=== PATIENT | male | born 1985 | race Two or more races ===

== ENCOUNTER 2023-02-12 08:28 | Emergency (ER) | payer SELFPAY ==
[2023-02-12 08:36] VITALS: BP 120/70; PULSE 64; RESP 18; TEMP 36.5; O2SAT 99; BMI 25.1
--- NOTE | 2023-02-12 09:24 | ED_ITS ---
HPI - General Adult General Chief complaint: General Medical Stated complaint: l ear infection piercing Time Seen by Provider: 02/12/23 09:02 Source: patient Mode of arrival: ambulatory Limitations: no limitations History of Present Illness HPI narrative: 37 yo male presents to the ER for evaluation of an infection of the left upper portion of the ear after he got it pierced 3 months ago. He states the infection started about a month ago after he changed earrings. He states since then he has had swelling, pain and drainage of white pus. No fevers. The earring has been removed for a month. complaint: left pinna infection Onset (ago): week(s) Location: head Radiation: non-radiation Severity: moderate Quality: aching Pain Consistency: intermittent Exacerbating factors: other (palpation and sleeping) Associated symptoms: denies other symptoms Treatments prior to arrival: none Related Data Previous Rx's Medication Instructions Recorded amoxicillin 875 mg-potassium 1 tab PO BID #14 tabs 02/12/23 clavulanate 125 mg tablet Allergies Allergy/AdvReac Type Severity Reaction Status Date / Time No Known Allergies Allergy Verified 02/12/23 08:38 Review of Systems Review of Systems: Yes all other systems are reviewed and are negative [facility] Social History Social History Advance Directives: No Physical Exam ED Vital Signs: Vital Signs - 24 hr 02/12/23 08:36 02/12/23 09:29 Temperature 97.7 F 98.3 F Pulse Rate 64 63 Respiratory Rate 18 16 Blood Pressure 120/70 135/87 Pulse Oximetry 99 98 Oxygen Delivery Method Room Air Room Air BMI result Body Mass Index 25.1 Appearance: Alert. Oriented X3. No acute distress. HEENT: left upper pinna with swelling and tenderness anteriorly and posteriorly with expression of purulent material, mild erythema. no bleeding. CVS: Normal heart rate and rhythm. Pulses normal. Respiratory: No respiratory distress. Skin: Skin warm and dry. Normal skin color. Normal skin turgor. No rashes. Extremities: normal inspection x4 Neuro: Oriented X 3. grossly normal Medical Decision Making Medical Decision Making MDM Narrative: 37 yo male presenting with pain, swelling and drainage of pus from the pinna of the left ear for the last 3-4 weeks. Active drainage on palpation, no need for I&D today. Will start on augmentin and start warm compresses and topical abx ointment. Stable for d/c home. Differential Diagnosis Differential Diagnoses: The differential diagnosis associated with the presentation includes pinna infection, abscess, otitis externa, cellulitis Prescription Management I considered prescription management with: Antibiotic Critical Care Time Critical Care Time Critical Care Time: No Discharge Plan Discharge Clinical Impression: Acute infection of left pinna Patient Disposition: Home, Self-Care Instructions: Abscess (ED) Additional Instructions: Use warm compresses to the area several times per day to the left ear Take the prescribed antibiotics as directed, complete the entire course and do not miss any doses Use the topical antiseptic spray that was provided to you when you got your ear pierced or topical antibiotic ointment If you develop new or worsening symptoms call 911 or come back to the ER for further evaluation. Prescriptions: New amoxicillin-pot clavulanate 875-125 mg tablet 1 tab PO BID Qty: 14 0RF Interventions: ED Discharge Assessment Last Done: 02/12/23 09:32 Discharge Date/Time: 02/12/23 09:33
[2023-02-12 09:29] VITALS: BP 135/87; PULSE 63; RESP 16; TEMP 36.8; O2SAT 98
== END 2023-02-12 09:33 | disposition home or self-care (01) ==
PROVIDERS: Emergency Provider Emergency Medicine Emergency Medical Services
DX: H60.392 Other infective otitis externa, left ear (principal); H60.12 Cellulitis of left external ear
CPT/HCPCS: 99283

== ENCOUNTER 2023-04-17 08:46 | Emergency (ER) | payer SELFPAY ==
[2023-04-17 08:50] VITALS: BP 115/65; PULSE 60; RESP 19; TEMP 36.1; O2SAT 99; BMI 26.6
--- NOTE | 2023-04-17 09:01 | ED_ITS ---
HPI - Ear Problem General Chief complaint: Ear Problems Stated complaint: L ear pain Time Seen by Provider: 04/17/23 08:48 History of Present Illness HPI Narrative: Patient is a 37-year-old male presents today with having pain to the left ear. He was seen in the emergency department in January. At the time patient had redness to the pinna. Was given Augmentin for 7 days. Symptom improved. Over last week patient claims this symptom has returned. There was redness there. Subsequently he had a large squirt of discharge coming from the wound. It has since improved now has some redness. Patient is from home. No systemic complaints. No significant past medical history. Patient did have a ear piercing in that area in the past. He currently on no medication. Has no allergies. Related Data Previous Rx's Medication Instructions Recorded amoxicillin 875 mg-potassium 1 tab PO BID #14 tabs 02/12/23 clavulanate 125 mg tablet doxycycline hyclate 100 mg capsule 100 mg PO BID cough 7 days #14 caps 04/17/23 Allergies Allergy/AdvReac Type Severity Reaction Status Date / Time No Known Allergies Allergy Verified 04/17/23 08:49 Review of Systems Review of Systems: No fever no chills no systemic complaints Yes all other systems are reviewed and are negative [facility] Past Medical History Attestation statement: The following information was validated with the patient. Physical Exam Vital Signs: Vital Signs: Last Vital Signs Temp 97 F 04/17/23 08:50 Pulse 60 04/17/23 08:50 Resp 19 04/17/23 08:50 BP 115/65 04/17/23 08:50 Pulse Ox 99 04/17/23 08:50 O2 Del Method Room Air 04/17/23 08:50 BMI result Body Mass Index 26.6 Appearance: Alert. Oriented X3. No acute distress. Eyes: Pupils equal, round and reactive to light. ENT: Pharynx normal. TMs are intact bilaterally there is no erythema noted. The pinna on the left side showed area redness slight fluctuance but there is pus that can be expressed. The area is relatively small approximately 1cm x 1 cm in size Neck: Normal inspection. Neck supple. No lymph nodes noted. No crepitus CVS: Normal heart rate and rhythm. Pulses normal. Normal S1 and S2 Respiratory: No respiratory distress. Breath sounds normal. No Wheezing. No rales Abdomen: Soft and nontender. No rigidity. No distention. good BS x4 Skin: Skin warm and dry. Normal skin color. Normal skin turgor. Extremities: No lower extremity edema. Neurovascular intact to all extremities. No Lacerations. No Rash Neuro: Oriented X 3. No motor deficit. No sensory deficit. Moving all extermities. No slurred speech Medical Decision Making Medical Decision Making MDM Narrative: Well-appearing no acute distress. We will go ahead and give patient doxycycline. Question MRSA. Nothing to drain at this time as pus is draining from the wound already. He is currently in stable condition. Patient has no allergies. Differential Diagnosis Differential Diagnoses: The differential diagnosis associated with the pre sentation includes Cellulitis, abscess Prescription Management I considered prescription management with: Antibiotic Discharge Plan Discharge Clinical Impression: Cellulitis Patient Disposition: Home, Self-Care Instructions: Cellulitis (ED) Prescriptions: New doxycycline hyclate 100 mg capsule 100 mg PO BID 7 Days Qty: 14 0RF No Action amoxicillin-pot clavulanate 875-125 mg tablet 1 tab PO BID Qty: 14 0RF Referrals: Physician,None [Primary Care Provider] - 04/22/23
== END 2023-04-17 09:12 | disposition home or self-care (01) ==
PROVIDERS: Emergency Provider Emergency Medicine Emergency Medical Services
DX: H60.12 Cellulitis of left external ear (principal)
CPT/HCPCS: 99283